=== PATIENT | female | born 1985 | race Caucasian/White ===

== ENCOUNTER 2023-07-21 18:53 | Emergency (ER) | payer OTHER, SELFPAY ==
--- NOTE | ~2023-07-21 | US_ITS ---
EXAMINATION: US pelvic complete w TV DATE: 07/22/2023 00:10 INDICATION: Left adnexal cyst TECHNIQUE: Multiple transabdominal and endovaginal sonographic images of the pelvis were obtained. COMPARISON: CT, 07/21/2023 FINDINGS: The uterus measures 8.7 x 3.9 x 3.6 cm. The endometrial complex measures 6 mm. There is a s mall amount of fluid in the endometrial canal. The right ovary measures 3.0 x 1.8 x 2.6 cm. The left ovary measures 7.8 x 5.5 x 5.5 cm. There is a 4.9 x 4.7 x 5.4 cm simple cyst of the left adnexa. A sm aller 1.7 x 2.5 x 3.3 cm paraovarian cyst is noted.. There is normal vascular flow in the ovaries. Th ere is no free fluid in the pelvis. IMPRESSION: 1. Simple cysts of the left adnexa measuring up to 4.9 cm. Reviewed, dictated and finalized at location A.
--- NOTE | ~2023-07-21 | CT_ITS ---
EXAMINATION: CT abdomen pelvis wo con DATE: 07/21/2023 21:38 INDICATION: Low abdominal pain. Flank pain. TECHNIQUE: Computed tomography (CT) of the abdomen and pelvis was performed without intravenous contr ast. Automated exposure control and iterative reconstruction technique were employed. The dose-length product was 2761.98 mGy-cm. COMPARISON: None. FINDINGS: The visualized portions of the lung bases are clear without pneumonia or pleural effusion. The heart size is normal. No pericardial effusion. The liver is normal. There are gallstones in the g allbladder, which is normal in size. There is mild splenomegaly, likely secondary to obesity. The cervantes creas, adrenal glands, and right kidney are normal. There is cortical thinning of left kidney. There is no urolithiasis. There is a large ventral hernia containing nonobstructed small and large bowel an d the stomach. There is diverticulosis of the colon without evidence of diverticulitis. A Avalos nica ch is noted. The anterior aspect of the body wall is excluded on the left due to obesity. There is mi ld left common iliac lymphadenopathy. There is no free intraperitoneal fluid. There is a 4.5 cm cyst in the left adnexa. There is mild thoracic and lumbar spondylosis. IMPRESSION: 1. Large ventral hernia containing nonobstructed small and large bowel and the stomach. 2. 4.5 cm cyst in the left adnexa, which may be a follicular cyst. Consider pelvis ultrasound. 3. Mild left common iliac lymphadenopathy. Reviewed, dictated and finalized at location E. IMPRESSION: 1. Large ventral hernia containing nonobstructed small and large bowel and the stomach. 2. 4.5 cm cyst in the left adnexa, which may be a follicular cyst. Consider pel vis ultrasound. 3. Mild left common iliac lymphadenopathy.
[2023-07-21 19:17] VITALS: BP 141/91; PULSE 86; RESP 18; TEMP 36.7; O2SAT 99
[2023-07-21 20:01] LABS: Basophils Percent Auto 0.4 % (0.2-1.2); Eosinophils Absolute Auto 0.1 K/mm3 (0-0.3); Eosinophils Percent Auto 1.1 % (0-4.4); Hematocrit 37.8 % (37.0-47.0); Hemoglobin 12.2 g/dL (12.0-15.0); Immature Granulocyte Absolute 0.04 K/mm3 (0.00-0.031); Immature Granulocyte Percent A 0.4 % (0-0.5); Lymphocytes Absolute Auto 2.48 K/mm3 (0.9-3.2); Lymphocytes Percent Auto 27.6 % (18.3-44.2); Mean Corpuscular HGB Conc 32.3 g/dl (32-36); Mean Corpuscular Hemoglobin 28.8 pg (26-34); Mean Corpuscular Volume 89.2 fl (80-100); Mean Platelet Volume 8.8 fl (7.4-10.4); Monocytes Absolute Auto 0.6 K/mm3 (0.1-0.6); Monocytes Percent Auto 6.9 % (2.6-8.5); Neutrophils Absolute Auto 5.7 K/mm3 (1.3-6.7); Neutrophils Percent Auto 63.6 % (45.5-73.1); Platelet Count Result 327 k/mm3 (150-375); Red Blood Count 4.24 M/mm3 (4.2-5.4); Red Cell Distribution Width 13.3 % (11.5-14.5)
[2023-07-21 20:13] LABS: Alanine Aminotransferase 24 U/L (6-35); Albumin Level 4.2 g/dL (3.5-5.1); Alkaline Phosphatase 70 U/L (38-126); Anion Gap 10 mmol/L (8-16); Aspartate Amino Transferase 22 U/L (14-36); Bilirubin,Total 0.2 mg/dL (0.2-1.3); Blood Urea Nitrogen 14 mg/dL (7-17); Calcium 9.4 mg/dL (8.4-10.2); Carbon Dioxide 24 mmol/L (22-30); Chloride 105 mmol/L (98-107); Estimated CRCL calculation 110 ml/min; Estimated Glomerular Filt Rate > 60; Glucose 81 mg/dL (65-110); Lipase 61 U/L (23-300); Potassium 4.1 mmol/L (3.4-5.0); Sodium 139 mmol/L (137-145)
[2023-07-21 20:40] LABS: Appearance Urine Turbid (Clear); Bacteria Urine 1+ /hpf; Bilirubin Urine Negative (Negative); Blood Urine 1+ (Negative); Color Urine Yellow (Yellow); Glucose Urine UA Negative (Negative); Ketones Urine Negative (Negative); Leukocyte Esterase Ur 2+ LEU/UL (Negative); Nitrate Urine Negative (Negative); Non Pathogenic Casts 0-2; Protein Urine 1+ mg/dL (Negative); Specific Grav Ur 1.032 (1.001-1.035); Squamous Epithelial Cell Urine Moderate /hpf (Few); Urobilinogen Urine 0.2 mg/dL (<2.0); WBC Urine >100 /hpf; pH Urine 5.5 (5.0-9.0)
[2023-07-21 20:41] LABS: Add Urine Microscopic? YES
--- NOTE | 2023-07-21 21:29 | ED.ABDPAIN ---
HPI - Abdominal Pain General Chief Complaint: Abdominal Pain <MAXIMINO Woo Last Filed: 07/24/23 17:08> Stated Complaint: pelvic pain x 6 days <MAXIMINO Woo Last Filed: 07/24/23 17:08> Time Seen by Provider: 07/21/23 20:52 <MAXIMINO Woo Last Filed: 07/24/23 17:08> Source: patient <MAXIMINO Woo Last Filed: 07/24/23 17:08> Mode of arrival: ambulatory <MAXIMINO Woo Last Filed: 07/24/23 17:08> Limitations: no limitations <MAXIMINO Woo Last Filed: 07/24/23 17:08> History of Present Illness HPI narrative: This is a 37 year old female that presents to the ER for dysuria. Ongoing over the last 6 days. Associated with flank pain and low abdominal pain. Reports she has been on Bactrim for 4 days without relief. Denies fever, vomiting or hematuria. <MAXIMINO Woo Last Filed: 07/24/23 17:08> Related Data Allergies/Adverse Reactions: Allergies Allergy/AdvReac Type Severity Reaction Status Date / Time cyclobenzaprine Allergy Unknown Verified 07/21/23 19:24 [From Flexeril] latex Allergy Rash Verified 07/21/23 19:24 prochlorperazine Allergy Anxiety Verified 07/21/23 19:24 [From Compazine] walnut Allergy Itching Verified 07/21/23 19:24 PENICILLIN Allergy Hives Uncoded 07/21/23 19:24 <MAXIMINO Woo Last Filed: 07/24/23 17:08> Review of Systems Review of Systems: CONSTITUTIONAL: Denies fever GASTROINTESTINAL: Reports abdominal pain. Denies nausea, vomiting GENITOURINARY: Reports dysuria. Denies hematuria. <MAXIMINO Woo Last Filed: 07/24/23 17:08> All systems reviewed & are unremarkable except as noted in HPI and below <MAXIMINO Woo Last Filed: 07/24/23 17:08> PMFSH Past Medical History Medical History: Medical History (Updated 07/23/23 @ 00:00 by Leola Fitzpatrick) History of anxiety <eHnny Rice PA-C - Last Filed: 07/24/23 17:08> Surgical History Surgical History: Surgical History (Updated 07/21/23 @ 21:33 by Henny Rice PA-C) History of colostomy <Henny Rice PA-C - Last Filed: 07/24/23 17:08> Social History Social History: Social History (Updated 07/21/23 @ 21:33 by Henny Rice PA-C) Substance use: never <Henny Rice PA-C - Last Filed: 07/24/23 17:08> Exam Narrative: GENERAL: Well-appearing, well-nourished, and in no acute distress. HEAD: Normocephalic, atraumatic. EYES: EOMI. CHEST: Clear to auscultation. No respiratory distress. No wheezes rales or rhonchi HEART: Regular rate and rhythm. No murmur heard. Normal peripheral pulses. ABDOMEN: Soft, nontender, nondistended, normal active bowel sounds. Colostomy present to the left mid abdomen. No CVA tenderness EXTREMITIES: Normal range of motion. No edema. SKIN: Warm, dry, no rash. NEURO: No focal deficits. Alert and oriented x3. PSYCH: Normal mood and affect <Henny Rice PA-C - Last Filed: 07/24/23 17:08> Course Course Emergency Course: Patient was updated on workup and agrees with plan of care <Henny Rice PA-C - Last Filed: 07/24/23 17:08> Vital Signs Vital signs: Vital Signs Temperature 98.1 F 07/21/23 19:17 Pulse Rate 86 07/21/23 19:17 Respiratory Rate 18 07/21/23 19:17 Blood Pressure 141/91 H 07/21/23 19:17 Pulse Oximetry 99 07/21/23 19:17 Oxygen Delivery Room Air 07/21/23 19:17 Temperature 98.1 F 07/21/23 19:17 Pulse Rate 70 07/22/23 07:25 Respiratory Rate 18 07/22/23 07:25 Blood Pressure 130/75 07/22/23 07:25 Pulse Oximetry 97 07/22/23 07:25 Oxygen Delivery Room Air 07/21/23 19:17 <Henny Rice PA-C - Last Filed: 07/24/23 17:08> Vital Signs Temperature 98.1 F 07/21/23 19:17 Pulse Rate 86 07/21/23 19:17 Respiratory Rate 18 07/21/23 19:17 Blood Pressure 141/91 H 07/21/23 19:17 Pulse Oximetry 99 07/21/23 19:17 Oxygen Delivery
[2023-07-21 22:30] VITALS: BP 134/81; PULSE 74; RESP 18; O2SAT 99
[2023-07-22 01:06] VITALS: BP 125/56; PULSE 82; RESP 17; O2SAT 98
[2023-07-22] MEDS: KETOROLAC 15 MG/ML VIAL (*BKC) IV PUSH (02:33)
[2023-07-22 02:36] VITALS: BP 125/74; PULSE 77; RESP 19; O2SAT 98
[2023-07-22 05:07] VITALS: BP 106/59; PULSE 85; RESP 20; O2SAT 97
[2023-07-22 05:47] VITALS: BP 108/54; PULSE 74; RESP 20; O2SAT 97
[2023-07-22 06:25] VITALS: BP 102/63; PULSE 83; RESP 19; O2SAT 98
[2023-07-22 07:25] VITALS: BP 130/75; PULSE 70; RESP 18; O2SAT 97
== END 2023-07-22 07:27 | disposition home or self-care (01) ==
PROVIDERS: Emergency Medicine; Emergency Provider Physician Assistant; PCP Family Medicine
DX: N39.0 Urinary tract infection, site not specified (principal); K43.9 Ventral hernia without obstruction or gangrene; N94.89 Other specified conditions associated with female genital organs and menstrual cycle
CPT/HCPCS: 36415; 74176; 76830; 76856; 80053; 81001; 81025; 83690; 85025; 87086; 87088; 96365; 96374; 99284; J0696; J1885